=== PATIENT | male | born 1940 | race American Indian/Alaskan Native ===

== ENCOUNTER 2017-07-01 22:23 | Inpatient (IN) | payer MEDICARE ==
--- NOTE | 2017-07-01 23:02 | ED PDOC ---
Arrival/HPI - General Chief Complaint: Shortness Of Breath Time Seen by Provider: 07/01/17 22:40 Historian: Patient - History of Present Illness Narrative History of Present Illness (Text): 07/01/17 23:02 Jonathan Jj is a 76 year old male, whose past medical history includes hypertension, diabetes, and sickle cell trait, who presents to the Emergency department complaining of occassional shortness of breath and discomfort to left lateral chest/flank area. Patient states he has been experiencing these symptoms for past few days. Patient states pain is worse with coughing and deep inspiration. Patient denies any fever, chills, abdominal pain, nausea, vomiting , diarrhea, urinary symptoms, back pain, neck pain, headache, dizziness, or any other complaints. PMD: Dr. Elen Mcfarland Symptom Onset: Gradual Symptom Course: Unchanged Activities at Onset: Light Context: Home Past Medical History - Provider Review Nursing Documentation Reviewed: Yes - Infectious Disease Hx of Infectious Diseases: None - Cardiac Hx Cardiac Disorders: Yes Hx Hypertension: Yes - Pulmonary Hx Respiratory Disorders: No - Neurological Hx Neurological Disorder: No Hx Paralysis: No - HEENT Hx HEENT Disorder: No - Renal Hx Renal Disorder: No - Endocrine/Metabolic Hx Endocrine Disorders: Yes Hx Diabetes Mellitus Type 1: Yes - Hematological/Oncological Hx Blood Disorders: No - Integumentary Hx Dermatological Disorder: No - Musculoskeletal/Rheumatological Hx Musculoskeletal Disorders: No - Gastrointestinal Hx Gastrointestinal Disorders: No - Genitourinary/Gynecological Hx Genitourinary Disorders: No - Psychiatric Hx Psychophysiologic Disorder: No Hx Substance Use: No - Anesthesia Hx Anesthesia: No Hx Anesthesia Reactions: No Hx Malignant Hyperthermia: No - Suicidal Assessment Feels Threatened In Home Enviroment: No Family/Social History - Physician Review Nursing Documentation Reviewed: Yes Family/Social History: Unknown Family HX Smoking Status: Never Smoked Hx Alcohol Use: No Hx Substance Use: No Allergies/Home Meds Allergies/Adverse Reactions: Allergies celecoxib [From Celebrex] Allergy (Verified 07/01/17 22:49) RASH Home Medications: Home Meds Medication Instructions Recorded Confirmed Glimepiride 2 mg PO DAILY 01/23/15 07/01/17 Olmesartan Medoxomil [Benicar] 20 mg PO DAILY 01/23/15 07/01/17 Simvastatin 20 mg PO DAILY 01/23/15 07/01/17 Review of Systems - Physician Review All systems were reviewed & negative as marked: Yes - Review of Systems Constitutional: Normal. absent: Fevers Eyes: Normal ENT: Normal Respiratory: absent: SOB Cardiovascular: Chest Pain Gastrointestinal: Normal. absent: Abdominal Pain, Diarrhea, Nausea, Vomiting Genitourinary Male: Normal. absent: Dysuria, Frequency, Hematuria, Urinary Output Changes Musculoskeletal: Normal. absent: Back Pain, Neck Pain Skin: Normal. absent: Rash Neurological: Normal. absent: Headache, Dizziness Endocrine: Normal Hemo/Lymphatic: Normal Psychiatric: Normal Physical Exam Vital Signs Reviewed: Yes Vital Signs Temp Pulse Resp BP Pulse Ox 07/02/17 06:00 88 18 144/81 94 L 07/02/17 03:05 89 20 153/91 H 97 07/02/17 00:51 87 20 126/70 94 L 07/01/17 22:48 98.1 F 91 H 21 160/92 H 97 Temperature: Afebrile Blood Pressure: Hypertensive Pulse: Regular Respiratory Rate: Normal Appearance: Positive for: Well-Appearing, Non-Toxic, Comfortable Pain Distress: None Mental Status: Positive for: Alert and Oriented X 3 Finger Stick Blood Glucose: 100 - Systems Exam Head: Present: Atraumatic, Normocephalic Pupils: Present: PERRL Extroacular Muscles: Present: EOMI Conjunctiva: Present: Normal Mouth: Present: Moist Mucous Membranes Neck: Present: Normal Range of Motion Respiratory/Chest: Present: Clear to Auscultation, Good Air Exchange. No: Respiratory Distress, Accessory Muscle Use, Tender to Palpation Cardiovascular: Present: Regular Rate and Rhythm, Normal S1, S2. No: Murmurs Abdomen: Present: Normal Bowel Sounds. No: Tenderness, Distention, Peritoneal Signs Back: Present: Normal Inspection. No: CVA Tenderness Upper Extremity: Present: Normal Inspection. No: Cyanosis, Edema Lower Extremity: Present: Normal Inspection. No: Edema Neurological: Present: GCS=15, CN II-XII Intact, Speech Normal Skin: Present: Warm, Dry, Normal Color. No: Rashes Psychiatric: Present: Alert, Oriented x 3, Normal Insight, Normal Concentration Medical Decision Making ED Course and Treatment: 07/01/17 23:02 Impression: 76 year old male complaining of chest pain and shortness of breath. Plan: -- EKG -- Chest X-ray -- Labs, cardiac enzymes -- Reassess and disposition Progress Notes: Reviewed EKG, NSR at 95 bpm. RBBB. LAHB. Non-specific ST/T wave changes. 07/02/17 01:20 Chest X-ray reviewed, shows no acute processes. 07/02/17 03:56 Case discussed with VQ scan racking technician, awaiting availability of quality isotope prior to study. 07/02/17 06:[address] Mcfarland, who is aware and agrees with plan. Accepts pt in to his service. Pt will be admitted to Telemetry. Requests Dr. Tolliver on consult. Pt to remain ER until results of VQ scan and US Duplex Lower Extremities are obtained. 07/02/17 07:[address] Watkins, awaiting VQ scan results, US Duplex Lower Extremities, and final disposition. - Lab Interpretations Lab Results: 07/01/17 23:10 07/01/17 23:10 Lab Results 07/02/17 04:15: Influenza Typ A,B (EIA) Negative for flu a/b 07/02/17 03:45: Urine Color Yellow, Urine Appearance Clear, Urine pH 6.0, Ur Specific [place] 1.020, Urine Protein Negative, Urine Glucose (UA) Negative, Urine Ketones Negative, Urine Blood Negative, Urine Nitrate Negative, Urine Bilirubin Negative, Urine Urobilinogen 0.2, Ur Leukocyte Esterase Negative 07/01/17 23:10: D-Dimer, Quantitative 4426 H 07/01/17 23:10: WBC 5.4, RBC 5.10, Hgb 12.0 L, Hct 36.4 L, MCV 71.4 L, MCH 23.5 L, MCHC 33.0, RDW 14.1, Plt Count 179, MPV 10.9 07/01/17 23:10: Sodium 140, Potassium 4.9, Chloride 104, Carbon Dioxide 25, Anion Gap 16, BUN 26 H, Creatinine 1.7 H, Est GFR ( Amer) 48, Est GFR ( Non-Af Amer) 39, Random Glucose 115 H, Calcium 9.7, Total Bilirubin 0.3, AST 24 , ALT 25, Alkaline Phosphatase 71, Lactate Dehydrogenase 478, Total Creatine Kinase 73, Troponin I 0.05, Total Protein 8.3, Albumin 3.9, Globulin 4.5, Albumin/Globulin Ratio 0.9 L 07/01/17 23:10: PT 12.7 H, INR 1.11 H, APTT 27.0 07/01/17 22:57: POC Glucose (mg/dL) 100 I have reviewed the lab results: Yes - RAD Interpretation Radiology Orders: 07/01/17 22:59 CHEST PORTABLE [RAD] Stat 07/02/17 03:52 LUNG PERF & VENT SCAN [NM] Stat 07/02/17 06:11 DUPLEX LOWER EXTRM VEIN BILAT [US] Stat Community Services Coordinator: ED Physician - EKG Interpretation Interpreted by ED Physician: Yes Type: 12 lead EKG - Medication Orders Current Medication Orders: Aspirin (Aspirin) 325 mg PO ONCE STA Stop: 07/02/17 06:17 - Scribe Statement The provider has reviewed the documentation as recorded by the Roseline Cummings Provider Scribe Attestation: All medical record entries made by the Scribe were at my direction and personally dictated by me. I have reviewed the chart and agree that the record accurately reflects my personal performance of the history, physical exam, medical decision making, and the department course for this patient. I have also personally directed, reviewed, and agree with the discharge instructions and disposition. Disposition/Present on Arrival - Present on Arrival Any Indicators Present on Arrival: No History of DVT/PE: No History of Uncontrolled Diabetes: No Urinary Catheter: No History of Decub. Ulcer: No History Surgical Site Infection Following: None - Disposition Have Diagnosis and Disposition been Completed?: Yes Diagnosis: Chest pain Disposition: HOSPITALIZED Disposition Time: 06:19 Patient Plan: Observation Condition: STABLE Discharge Instructions (ExitCare): Chest Pain (ED) Referrals: Kai Mcfarland JD, MD [Primary Care Provider] - Follow up with primary Forms: [employer] (Cuban)
[2017-07-01 23:29] LABS: MEAN CELL VOLUME 71.4 fl (80.0-105.0); MEAN CORPUSCULAR HEMOGLOBIN 23.5 pg (25.0-35.0); MEAN PLATELET VOLUME 10.9 fl (7.0-11.0); RBC 5.1 10^6/uL (3.5-6.1); RED CELL DISTRIBUTION WIDTH 14.1 % (11.5-14.5); WHITE BLOOD COUNT 5.4 10^3/ul (4.5-11.0)
[2017-07-01 23:36] LABS: PROTHROMBIN TIME 12.7 SECONDS (9.4-12.5)
[2017-07-01 23:37] LABS: INR 1.11 (0.93-1.08)
[2017-07-01 23:45] LABS: ALB/GLOB RATIO 0.9 (1.1-1.8); ALBUMIN 3.9 g/dL (3.0-4.8); CALCIUM 9.7 mg/dL (8.4-10.5)
[2017-07-01 23:54] LABS: TROPONIN I 0.05 ng/mL
[2017-07-02 03:57] LABS: URINE BILIRUBIN NEGATIVE (NEGATIVE); URINE BLOOD NEGATIVE (NEGATIVE); URINE GLUCOSE (UA) NEGATIVE (NEGATIVE); URINE LEUKOCYTE ESTERASE NEGATIVE Leu/uL (NEGATIVE); URINE PROTEIN NEGATIVE mg/dL (<30 mg/dL); URINE UROBILINOGEN 0.2 E.U./dL (<1 E.U./dL)
[2017-07-02 04:04] LABS: URINE APPEARANCE CLEAR (CLEAR); URINE COLOR YELLOW (YELLOW)
--- NOTE | 2017-07-02 09:22 | RAD ---
HISTORY: Chest pain COMPARISON: 04/15/2016. FINDINGS: LUNGS: The lungs are well inflated. There is mild pulmonary venous congestion and redistribution There is a left retrocardiac opacity. PLEURA: There is blunting of the left costophrenic angle No significant right pleural effusion identified, no pneumothorax apparent. CARDIOVASCULAR: There is mild cardial OSSEOUS STRUCTURES: No significant abnormalities. VISUALIZED UPPER ABDOMEN: Normal. OTHER FINDINGS: None. IMPRESSION: Mild cardiomegaly, pulmonary venous congestion and redistribution. Left lower lobe atelectasis/pneumonia and small left pleural effusion. Follow-up is advised.
[2017-07-02] MEDS ORDERED: Naproxen 550 mg Tab PO STA (10:02)
[2017-07-02] MEDS ORDERED: Pantoprazole 40 mg EC Tab PO STA (10:04)
[2017-07-02] MEDS ORDERED: Potassium Chloride 10 mEq ER Tab PO STA (10:50)
[2017-07-02 10:54] LABS: TROPONIN I 0.06 ng/mL
[2017-07-02] MEDS: Heparin25000 units/250ml 1/2NS 25,000 UNITS/250 ML BAG IV PRN (12:46)
--- NOTE | 2017-07-02 13:42 | NM ---
COMPARISON: Chest radiographs 07/01/2017. TECHNIQUE: 35.6 mCi technetium 99-m DTPA aerosol. 4.3 mCI technetium 99-m MAA administered intravenously. FINDINGS: VENTILATION COMPONENT: There is a some reverse mismatch is at the superior segment left lower lobe. Remainder of the ventilation study is unremarkable PERFUSION COMPONENT: A solitary small perfusion defect is appreciated at the right lower lobe posterior laterally, partially mismatched. IMPRESSION: Lowprobability ventilation perfusion scan for pulmonary embolism.
--- NOTE | 2017-07-02 17:51 | CARD ---
APPROVED REPORT EKG Measurement Heart [id number] <Conclusion> Poor data quality, interpretation may be adversely affected Normal sinus rhythm Right bundle branch block Left anterior fascicular block Bifascicular block Abnormal ECG
[2017-07-02] MEDS ORDERED: Naproxen 550 mg Tab PO SCH (18:00)
[2017-07-02 18:12] VITALS: BMI 33.0
[2017-07-02] MEDS ORDERED: Influenza Vaccine 60 mcg/0.5 mL SYR (4YR UP) IM ONE (18:12)
[2017-07-02] MEDS ORDERED: Pneumococcal 23-Valent Vaccine IM ONE (18:12)
--- NOTE | 2017-07-02 19:50 | CON ---
DATE: 07/02/2017 LOCATION: Presently patient in Emergency Room, going to go to room 373, bed 2. REASON FOR CONSULTATION: Chest pain and shortness of breath. HISTORY OF PRESENT ILLNESS: Patient is a 76-year-old male, known case of diabetes mellitus, hypertension, high cholesterol, admitted with a history that since last 10 days, he is getting shortness of breath on minimal exertion. Denies any PND, and he has also developed pain in the left axillary line on the chest at the 12th rib area on a localized point. This pain occurs on deep inspiration and with cough, and if he does not take deep breath or does not have any cough, he is pain free. This pain has no relation to exertion. On exertion, he gets shortness of breath from the last 10 days. Denies any swelling of legs or PND. Patient denies any previous history of cardiac disease. He states that approximately 15 years ago, he had cardiac cath and was told it was normal. PAST HISTORY: Patient has a history of diabetes, high blood pressure, high cholesterol, and had been on medications in the past. He sates that he had a colonoscopy and endoscopy. Denies any surgical procedures otherwise. ALLERGIES: PATIENT IS ALLERGIC TO CELEBREX, HE GETS RASH WITH THAT. PERSONAL HISTORY: No smoking. No drinking. FAMILY HISTORY: Not significant. MEDICATION AT HOME: Patient was taking glimepiride 2 mg p.o. daily, Benicar 20 mg p.o. daily, simvastatin 20 mg p.o. daily. REVIEW OF SYSTEMS: All other systems are reviewed. Positive mentioned in the history; others are negative. PHYSICAL EXAMINATION: VITAL SIGNS: Blood pressure 124/81, earlier pressure was 126/70; respirations 18, pulse 88, temperature 98.9. HEENT: Head is normocephalic. Eyes: Pupils normal, conjunctivae slightly pale. NECK: JVP low. Carotids equal. THORAX: AP diameter normal. LUNGS: Clear. CARDIOVASCULAR: S1 and S2. ABDOMEN: Soft. No tenderness. No organomegaly. EXTREMITIES: No clubbing. No cyanosis. No calf tenderness. No edema. LABORATORY DATA: WBC 5.4, hemoglobin 12.0, hematocrit 36.4; MCV low, 71.4; MCH low, 23.5; MCHC normal, 33.0; platelets 179. Sodium 140, potassium 4.9, BUN 26, creatinine 1.7. Random glucose 117. AST and ALT normal. Total protein and albumin normal. Troponin is 0.05. Chest x-ray, possibility of mild pulmonary venous congestion, blunting of the left costophrenic angle, mild cardiomegaly. Chest x-ray also has poor penetration film. EKG showed regular sinus rhythm, RBBB; Q wave in II, III, AVF; possibility of old inferior wall MA. DIAGNOSES: Chest pain, which is a localized tenderness, is musculoskeletal pain, shortness of breath, possibility of mild congestive heart failure, diabetes mellitus, hypertension, hypocholesterolemia, obesity. PLAN: The patient's chest pain is musculoskeletal. We will add naproxen for that, along with Protonix. Also, we will give Lasix 40 mg of IV now. The patient is waiting for nuclear Lexiscan and we will also order an echocardiogram, lipid profile and TSH, and we will do the echo to evaluate LV function and will follow with you closely. Stefanie Foramn MD
--- NOTE | 2017-07-03 00:04 | HP ---
HISTORY OF PRESENT ILLNESS: The patient is a 76-year-old male, admitted through the emergency department complaining of swelling of the legs bilaterally with a shortness of breath and left-sided chest discomfort over the past 2 days. The patient has mild dyspnea on exertion. Denies shortness of breath. There is no cough. No hemoptysis. No fever. No chills. He was seen in the emergency department where venous Doppler was positive for deep vein thrombosis. VQ scan was low probability for pulmonary embolus and the patient is admitted and started on IV heparin for deep DVT. PAST MEDICAL HISTORY: Includes type 2 diabetes mellitus, hypertension, hypercholesterolemia, degenerative joint disease. PAST SURGICAL HISTORY: The patient has no significant past surgical history. CURRENT MEDICATIONS: Include Benicar 20 mg daily, glimepiride 2 mg daily and Zocor 20 mg daily. The patient reports allergies to Celebrex with possible allergies to penicillin as well. SOCIAL HISTORY: The patient denies any history of tobacco or alcohol use. REVIEW OF SYSTEMS: Essentially as above. PHYSICAL EXAMINATION: GENERAL: The patient is a well-developed, mildly obese male, in no acute distress. VITAL SIGNS: Blood pressure 123/88, temperature 98.2, pulse 88, respiratory rate 20. HEENT: Head is normocephalic, atraumatic. Pupils equal, round, reactive to light. Extraocular movements intact. NECK: Supple with no thyromegaly. No carotid bruit. No adenopathy. LUNGS: Clear. HEART: Regular rate and rhythm. ABDOMEN: Soft, nontender. Bowel sounds are normoactive. EXTREMITIES: Without cyanosis, clubbing. There is 1 to 2+ bipedal edema. NEUROLOGIC: The patient is awake and oriented x3 without focal sensory or motor deficits. SKIN: Warm and dry. LABORATORY DATA: WBC is 5.4, hemoglobin 12.0, hematocrit 36.4. Sodium 140, potassium 4.9, chloride 104, CO2 of 25, BUN 26, creatinine 1.7, glucose 115. Troponin is 0.05 and 0.06. CPK is 73 and 72 respectively. D-dimer was markedly elevated at 4426. IMPRESSION: 1. Deep vein thrombosis of lower extremities. 2. Type 2 diabetes mellitus. 3. Hypertension. 4. Hypercholesterolemia. 5. Degenerative joint disease/moderate obesity. PLAN: The patient will be admitted to the remote telemetry floor. He has been started on IV heparin. He has been seen in consultation by Cardiology, Dr. Forman/Unruly. The patient will remain on heparin protocol. YANCI Hilliard MD
[2017-07-03] MEDS: Heparin25000 units/250ml 1/2NS 25,000 UNITS/250 ML BAG IV PRN (05:18)
--- NOTE | 2017-07-03 09:17 | CP.PCM.PN ---
Subjective - Date & Time of Evaluation Date of Evaluation: 07/03/17 Time of Evaluation: 07:45 - Subjective Subjective: Seen and examined by me and Dr. Forman Reason for consult and follow up: a 76 year old hx of hypertension, diabetes mellitus high cholesterol, with complaints of of chest pain and shortness of breath for the past 10 days on minimal exertion. also complaints of pain on the left axillary line local site on deep inspiration with cough. Denies pain or cough if not breathing deeply. Denies shortness of breath, denies chest pain but complaints of pain on left axillary line on deep breathing however better than yesterday and after Naprosyn intake Objective - Vital Signs/Intake and Output Vital Signs (last 24 hours): Temp Pulse Resp BP Pulse Ox 98.6 F 73 18 123/72 99 07/02/17 17:57 07/03/17 02:00 07/02/17 17:57 07/02/17 17:57 07/02/17 17:49 Intake and Output: 07/03/17 07/03/17 06:59 18:59 Intake Total 370 Output Total 400 Balance -30 - Medications Medications: Current Medications Furosemide (Lasix) 40 mg IV DAILY [facility] Heparin Sodium/Sodium Chloride (Heparin 58653 Units/250ml 1/2 Normal Saline) 25 ,000 units in 250 mls @ 17.783 mls/hr IV .Q14H4M PRN; Protocol; 18 UNITS/KG/HR PRN Reason: ADJUST RATE PER PROTOCOL Last Titration: 07/03/17 06:23 Dose: 12 units/kg/hr, 11.855 mls/hr Naproxen (Anaprox Ds) 550 mg PO BID [facility] Last Admin: 07/02/17 19:38 Dose: 550 mg Pantoprazole Sodium (Protonix Ec Tab) 40 mg PO DAILY [facility] Potassium Chloride (Klor-Con 10) 10 meq PO DAILY [facility] - Labs Labs: PT 12.7 SECONDS (9.4-12.5) H 07/01/17 23:10 INR 1.11 (0.93-1.08) H 07/01/17 23:10 APTT 190.7 Seconds (25.1-36.5) H* 07/03/17 04:50 - Constitutional Appears: Well, No Acute Distress - Head Exam Head Exam: NORMAL INSPECTION - Eye Exam Eye Exam: Normal appearance Pupil Exam: NORMAL ACCOMODATION - ENT Exam ENT Exam: Normal Exam - Respiratory Exam Respiratory Exam: Clear to Ausculation Bilateral, NORMAL BREATHING PATTERN Additional comments: Denies shortness of breath in bed however ambulated 50 feet and had shortness of breath and have to sit and assisted back to bed - Cardiovascular Exam Cardiovascular Exam: REGULAR RHYTHM, +S1, +S2 - Extremities Exam Extremities Exam: Full ROM, Normal Capillary Refill, Normal Inspection - Neurological Exam Neurological Exam: Alert, Awake, Normal Gait, Oriented x3 - Psychiatric Exam Psychiatric exam: Normal Affect, Normal Mood - Skin Skin Exam: Dry, Intact, Normal Color, Warm Assessment and Plan - Assessment and Plan (Free Text) Assessment: A 76 year old hx of hypertension, diabetes mellitus high cholesterol, with complaints of of chest pain and shortness of breath for the past 10 days on minimal exertion. also complaints of pain on the left axillary line local site on deep inspiration with cough. Denies pain or cough if not breathing deeply. New onset deep vein thrombosis Plan: Positive for deep vein thrombosis- continue Heparin drip per protocol Denies shortness of breath at rest however ambulated 50 ft and complained of shortness of breath. places on nasal cannula 2 liter/min. VQ scan negative for pulmonary embolism however D-Dimer elevated (4426). Will order CT scan of chest without contrast (due to elevated BUN/creatinine) Will repeat electrolytes and if reasonable results will consider CT of chest with contrast. Left axillary muscle pain got relieved with Naproxen. continue PRN. Discontinued Lasix and potassium. Started IV fluids for hydration. Will follow up Plan and treatment reviewed with Dr. Forman
[2017-07-03] MEDS ORDERED: Potassium Chloride 10 mEq ER Tab PO SCH (10:00)
[2017-07-03] MEDS: Pantoprazole 40 mg EC Tab PO SCH (11:00)
--- NOTE | 2017-07-03 13:56 | CP.PCM.PN ---
Subjective - Date & Time of Evaluation Date of Evaluation: 07/03/17 Time of Evaluation: 10:00 - Subjective Subjective: patient complains of some STEWART, no chest pain, no SOB Objective - Vital Signs/Intake and Output Vital Signs (last 24 hours): Temp Pulse Resp BP Pulse Ox 97.7 F 92 H 20 148/106 H 99 07/03/17 12:00 07/03/17 12:00 07/03/17 12:00 07/03/17 12:00 07/02/17 17:49 Intake and Output: 07/03/17 07/03/17 06:59 18:59 Intake Total 370 Output Total 400 Balance -30 - Medications Medications: Current Medications Apixaban (Eliquis) 10 mg PO BID [facility] PRN Reason: Protocol Pantoprazole Sodium (Protonix Ec Tab) [address] [facility] Last Admin: 07/03/17 11:00 Dose: 40 mg - Labs Labs: PT 12.7 SECONDS (9.4-12.5) H 07/01/17 23:10 INR 1.11 (0.93-1.08) H 07/01/17 23:10 APTT 190.7 Seconds (25.1-36.5) H* 07/03/17 04:50 - Respiratory Exam Respiratory Exam: Clear to Ausculation Bilateral, NORMAL BREATHING PATTERN - Cardiovascular Exam Cardiovascular Exam: REGULAR RHYTHM - GI/Abdominal Exam GI & Abdominal Exam: Soft, Normal Bowel Sounds - Extremities Exam Extremities Exam: Normal Inspection - Neurological Exam Neurological Exam: Alert, Awake, Normal Gait - Skin Skin Exam: Dry, Warm Assessment and Plan (1) DVT (deep venous thrombosis) Status: Acute (2) HTN (hypertension) Status: Chronic (3) Type II diabetes mellitus Status: Chronic - Assessment and Plan (Free Text) Plan: V/Q scan low probability of PE, will DC heparin and start Eliquis 10 bid x 1wk, then 5mg bid. Social work for discharge planning. Cardiology consult Dr. Forman/Unruly appreciated.
[2017-07-03 15:31] LABS: ALB/GLOB RATIO 0.9 (1.1-1.8); ALBUMIN 4.1 g/dL (3.0-4.8)
--- NOTE | 2017-07-03 16:46 | CARD ---
APPROVED REPORT EXAM: Two-dimensional and M-mode echocardiogram with Doppler and color Doppler. INDICATION CP/LVFX/RVSP 2D DIMENSIONS Left Atrium (2D)4.1 (1.6-4.0cm)IVSd1.8 (0.7-1.1cm) LVDd3.1 (3.9-5.9cm)PWd1.9 (0.7-1.1cm) LVDs2.1 (2.5-4.0cm)FS (%) 32.3 % LVEF (%)61.9 (>50%) M-Mode DIMENSIONS Aortic Root3.50 (2.2-3.7cm)Aortic Cusp Exc.2.00 (1.5-2.0cm) Aortic Valve AoV Peak Nzunqzwt004.0cm/sAoV VTI23.4cmAO Peak GR.9mmHg LVOT Peak Yvongzpb31.3cm/sLVOT VTI16.70cmAO Mean GR.5mmHg Mitral Valve MV E Kvffhmbk72.1cm/sMV A Uxcudunw42.5cm/sE/A ratio0.8 TDI Lateral E' Peak V4.87cm/sMedial E' Peak V4.68cm/sE/Lateral E'13.0 E/Medial E'13.5 Pulmonary Valve PV Peak Ktdxudov25.5cm/sPV Peak Grad.3mmHg Tricuspid Valve TR Peak Pyxikclp779sk/sRAP [id number] Peak Gr.45mmHg [id number] LEFT VENTRICLE The left ventricle is normal size. There is moderate concentric left ventricular hypertrophy. The left ventricular function is normal.EF-60-65% There is normal LV segmental wall motion. Transmitral Doppler flow pattern is Grade III-reversible restrictive diastolic dysfunction. No left ventricle thrombus noted on this study. There is no ventricular septal defect visualized. There is no left ventricular aneurysm. There is no mass noted in the left ventricle. RIGHT VENTRICLE The right ventricle is moderately to severely dilated. There is normal right ventricular wall thickness. Systolic function is moderately to severely reduced. ATRIA The left atrium is mildly dilated. The right atrium size is normal. The interatrial septum is intact with no evidence for an atrial septal defect. AORTIC VALVE The aortic valve is thickened but opens well. No aortic regurgitation is present. There is no aortic valvular stenosis. There is no aortic valvular vegetation. MITRAL VALVE The mitral valve is thickened but opens well. Mitral regurgitation is trace. There is no mitral valve stenosis. There is no evidence of mitral valve prolapse. TRICUSPID VALVE The tricuspid valve leaflets are thickened , but open well. There is moderate tricuspid regurgitation.RVSP-55 mmof Hg. There is no tricuspid valve stenosis. There is no tricuspid valve prolapse or vegetation. PULMONIC VALVE The pulmonic valve is borderline thickened. There is moderate pulmonic valvular regurgitation. There is no pulmonic valvular stenosis. GREAT VESSELS The aortic root is normal in size. The ascending aorta is normal in size. The pulmonary artery is normal. The IVC is normal in size and collapses >50% with inspiration. PERICARDIAL EFFUSION There is no pleural effusion. There is no pericardial effusion. <Conclusion> The left ventricle is normal size. There is moderate concentric left ventricular hypertrophy. The left ventricular function is normal.EF-60-65% Mitral regurgitation is trace. There is moderate tricuspid regurgitation.RVSP-55 mmof Hg. There is moderate pulmonic valvular regurgitation. The IVC is normal in size and collapses >50% with inspiration. There is no pericardial effusion.
[2017-07-03] MEDS ORDERED: Heparin25000 units/250ml 1/2NS 25,000 UNITS/250 ML BAG IV PRN (17:20)
[2017-07-03] MEDS: Sodium Chloride 0.45% 1,000 ML IV SCH (17:30)
--- NOTE | 2017-07-03 19:34 | US ---
HISTORY: Leg pain and swelling. Evaluate for DVT PHYSICIAN(S): Kaveh Forde MD. TECHNIQUE: Duplex sonography and color-flow Doppler with graded compression were used to evaluate the deep venous systems of both lower extremities. FINDINGS: There is occlusive thrombus in the mid to distal left femoral vein. Thrombus is also noted in the left popliteal vein and visualized left tibial veins. This could represent acute/subacute thrombus. The proximal left femoral vein and left common femoral vein are patent and compressible. There is no sonographic evidence for deep venous thrombosis the visualized segments the right lower extremity. IMPRESSION: Acute/subacute thrombus in the mid to distal left femoral vein and popliteal vein.
[2017-07-04] MEDS: Sodium Chloride 0.45% 1,000 ML IV SCH (03:38)
[2017-07-04 06:08] VITALS: RESP 19; TEMP 97.6; O2SAT 97
[2017-07-04] MEDS ORDERED: Pneumococcal 23-Valent Vaccine IM ONE (09:27)
--- NOTE | 2017-07-04 10:05 | CT ---
PROCEDURE: CT Chest without contrast HISTORY: eval for PE COMPARISON: None. TECHNIQUE: Contiguous axial images were obtained through the chest without intravenous contrast enhancement. Sagittal and coronal reconstructions were performed. Radiation dose (DLP): mGy-cm. This CT exam was performed using one or more of the following dose reduction techniques: Automated exposure control, adjustment of the mA and/or kV according to patient size, and/or use of iterative reconstruction technique. FINDINGS: LUNGS: Multiple pulmonary nodules the preponderance of which are 1 cm or less, likely metastatic disease. Left lower lobe infiltrate/atelectasis. MEDIASTINUM: Unremarkable thoracic aorta. No aneurysm. Normal sized heart. Main pulmonary artery unremarkable. No vascular congestion. Mediastinal, hilar lymphadenopathy. The findings are suspicious for neoplasm. Inflow 1 hilar nodes right greater than left. PLEURA: No pleural fluid. No pneumothorax. BONES: No fracture. No destructive lesion. Lytic lesion in the sternum with cortical irregularity. Bony metastatic disease suspected. UPPER ABDOMEN: Grossly unremarkable. OTHER FINDINGS: None. IMPRESSION: 1. Left lower lobe infiltrate/atelectasis. 2. Innumerable pulmonary nodules suspicious for metastatic disease. 3. Mediastinal/bilateral hilar adenopathy, etiology of which is uncertain but suspicious for neoplastic etiology. 4. Lytic sternal lesion. This is best seen on sagittal series 602/image 83. Concordant results (preliminary interpretation) provided by [employer]. Procedure Completed: 19:26 Preliminary ([facility]) Report: Dictated and Authenticated: 21:18 Final Interpretation: 10:03 July 04, 2017.
--- NOTE | 2017-07-04 10:35 | CP.PCM.PN ---
Subjective - Date & Time of Evaluation Date of Evaluation: 07/04/17 Time of Evaluation: 07:55 - Subjective Subjective: Seen and examined by me and Dr. Forman Reason for consultation and follow up: complaints of left axillary pain and chest pain with shortness of breath for the past 10 days prior to admission Denies pain on the left axillary, denies chest pain, denies shortness of breath , ambulating to bathroom Objective - Vital Signs/Intake and Output Vital Signs (last 24 hours): Temp Pulse Resp BP Pulse Ox 97.6 F 82 19 126/87 97 07/04/17 06:00 07/04/17 06:00 07/04/17 06:00 07/04/17 06:00 07/04/17 06:00 Intake and Output: 07/04/17 07/04/17 06:59 18:59 Intake Total 4280 Balance 4280 - Medications Medications: Current Medications Apixaban (Eliquis) 10 mg PO BID [facility] PRN Reason: Protocol Last Admin: 07/03/17 17:40 Dose: 10 mg Sodium Chloride (Sodium Chloride 0.45%) 1,000 mls @ 100 mls/hr IV .Q10H [facility] Last Admin: 07/04/17 03:38 Dose: 100 mls/hr Pantoprazole Sodium (Protonix Ec Tab) 40 mg PO DAILY [facility] Last Admin: 07/03/17 11:00 Dose: 40 mg - Labs Labs: PT 12.7 SECONDS (9.4-12.5) H 07/01/17 23:10 INR 1.11 (0.93-1.08) H 07/01/17 23:10 APTT 190.7 Seconds (25.1-36.5) H* 07/03/17 04:50 Ordered CMP yesterday but patient refused for blood draw today - Constitutional Appears: Well, No Acute Distress - Head Exam Head Exam: NORMAL INSPECTION - Eye Exam Eye Exam: Normal appearance Pupil Exam: NORMAL ACCOMODATION - ENT Exam ENT Exam: Mucous Membranes Moist - Neck Exam Neck Exam: Full ROM, Normal Inspection - Respiratory Exam Respiratory Exam: Clear to Ausculation Bilateral, NORMAL BREATHING PATTERN - Cardiovascular Exam Cardiovascular Exam: REGULAR RHYTHM, +S1, +S2 - GI/Abdominal Exam GI & Abdominal Exam: Soft, Normal Bowel Sounds - Extremities Exam Extremities Exam: Full ROM, Normal Capillary Refill, Normal Inspection - Neurological Exam Neurological Exam: Alert, Awake, Oriented x3 - Psychiatric Exam Psychiatric exam: Normal Affect, Normal Mood - Skin Skin Exam: Dry, Intact, Normal Color, Warm Assessment and Plan - Assessment and Plan (Free Text) Assessment: On admission complaints of left axillary pain and chest pain with shortness of breath for the past 10 days prior to admission, hypertension, diabetes mellitus , deep vein thrombosis new onset Plan: Heparin was discontinued and switched to Eloquis as directed for deep vein thrombosis Given IV fluids yesterday for hydration and repeat electrolytes however refused blood draw Blood pressure and heart rate stable Ambulating to the bathroom with no shortness of breath For discharge today as claimed by patient To follow up in the office, patient to make appointment. CT of chest result noted. Dr. oFrman discussed with Dr. Mcfarland Treatment and plan reviewed with Dr. Forman
[2017-07-04] MEDS: Pantoprazole 40 mg EC Tab PO SCH (10:46)
[2017-07-04 12:08] VITALS: BP 136/79
[2017-07-04 12:09] VITALS: PULSE 91
--- NOTE | 2017-07-05 07:33 | DS ---
HOSPITAL COURSE: The patient is a 76-year-old male admitted through the Emergency Department on 07/02/2017 complaining of swelling of the legs and shortness of breath. The patient had a venous duplex scan, which was positive for deep vein thrombosis of the left leg. He had a V/Q scan, which showed low probability of pulmonary embolus. A CT angiogram was not performed due to renal impairment. The patient had an uneventful hospital course, was monitored in the Telemetry Unit for some complaints of shortness of breath with desaturation with exercise, but at present, denies any chest pain, shortness of breath or dyspnea with exertion and is medically stable for discharge. PHYSICAL EXAMINATION VITAL SIGNS: Blood pressure 126/87, temperature 97.6, pulse 82, respiratory rate 19. LUNGS: Clear. HEART: Regular rate and rhythm. ABDOMEN: Soft, nontender. Bowel sounds are normoactive. EXTREMITIES: Without cyanosis, clubbing or edema. NEUROLOGIC: The patient is awake and oriented without focal, sensory or motor deficits. SKIN: Warm and dry. IMPRESSION 1. Deep vein thrombosis of the left leg. 2. Type 2 diabetes mellitus. 3. Hypertension. 4. Degenerative joint disease/obesity. 5. Hypercholesterolemia. PLAN: The patient will be discharged to home in stable condition on the following medications: Benicar 20 mg daily, glimepiride 2 mg daily, Zocor 20 mg daily. He was started on Eliquis 10 mg twice daily. He will continue that for six days and then, take Eliquis 5 mg twice daily. ACTIVITES: Ad libitum. PLAN: He will be followed as an outpatient within the next one to two weeks. He was seen in consultation by Dr. Forman/Dr. Tolliver of Cardiology and will follow up with them as an outpatient. CT scan of the chest, noncontrast, is pending. Kai Mcfarland JD/
== END 2017-07-04 12:10 | disposition home or self-care (01) | DRG 301 ==
LOC: ED 22:23 → ERH 07-02 06:19 → 3RSO 07-02 15:17 → OBSVTOIN 07-03 15:27
PROVIDERS: ADMIT Internal Medicine; ATTEND Internal Medicine
PROC: 3E0234Z Introduction of Serum, Toxoid and Vaccine into Muscle, Percutaneous Approach (ICD-10-PCS; principal; 2017-07-04)
DX: I82.412 Acute embolism and thrombosis of left femoral vein (principal); I82.432 Acute embolism and thrombosis of left popliteal vein; D57.3 Sickle-cell trait; E11.9 Type 2 diabetes mellitus without complications; E78.00 Pure hypercholesterolemia, unspecified; I10 Essential (primary) hypertension; M19.90 Unspecified osteoarthritis, unspecified site; E66.9 Obesity, unspecified; N28.9 Disorder of kidney and ureter, unspecified; Z79.899 Other long term (current) drug therapy; Z88.8 Allergy status to other drugs, medicaments and biological substances; R40.2412 Glasgow coma scale score 13-15, at arrival to emergency department; Z23 Encounter for immunization